=== PATIENT | male | born 1995 | race Caucasian/White ===

== ENCOUNTER → 2016-09-12 | Outpatient (CLI) | payer BC | LOC: COL.RAD 17:06 | DX: R10.31 Right lower quadrant pain (principal) | CPT/HCPCS: Q9967 ==

== ENCOUNTER → 2016-11-03 | Outpatient (REF) | LOC: WSOH 10:13 → WSPT 11:30 | DX: Z00.00 Encounter for general adult medical examination without abnormal findings (principal) ==